=== PATIENT | male | born 2005 | race Caucasian/White ===

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

== ENCOUNTER 2023-12-11 09:07 | Emergency (ER) | payer OTHER ==
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
[2023-12-11 10:35] VITALS: TEMP 98
[2023-12-11 10:36] VITALS: BP 117/99; O2SAT 97
--- OUTSIDE RECORDS SUMMARY | 2023-12-14 08:31 | XMS REPORT | Clinical Summary ---
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 Name Role Phone Unavailable Primary Care Provider Unavailabl e Immunizations Name Administration Dates Next Due Pfizer SARS-CoV-2 Vaccination (Purple Cap) 09/15,08/16/2020 Social History Tobacco Use Types Packs/Day Years Used Date Smoking Tobacco: Never Assessed Sex and Gender Information Value Date Recorded Sex Assigned at Not on file Gender Identity Not on file Sexual Orientation Not on file Plan of Treatment Health Maintenance Due Date Last Done Comments COVID-19 Vaccine (2022- 4 season) 2022 09/15/2020, 08/16/2020 Influenza Vaccine 12/27/2023 Pneumococcal Vaccine: Pediatrics (0 to 5 Years) and At-Risk Patients (6 to 64 Years) Aged Out No longer eligible b ased on patient's age to complete this topic
== END 2023-12-11 10:28 | disposition home or self-care (01) ==
LOC: ER 09:07
DX: F43.0 Acute stress reaction (principal); F84.0 Autistic disorder; F31.9 Bipolar disorder, unspecified
CPT/HCPCS: 99283